=== PATIENT | male | born 1960 | race Caucasian/White ===

== ENCOUNTER → 2017-01-28 | Outpatient (CLI) | payer BC ==
[~2017-01-28] MED LIST: PRILOSEC20 MG PO; ZESTRIL40 MG PO; ZYLOPRIM300 MG PO
--- NOTE | ~2017-01-28 | ECHO ---
Transthoracic Echocardiography Report (TTE) Demographics Patient Name FRANCINE SHAFER Date of Study 01/28/2017 Patient Number [id number] Visit Number [id number] Date of 1960 Room Number Gender Male Number Age 56 year(s) Referring [facility] Core Setter Belgica Izquierdo RD, Physician RVT Physician Interpreting Asaf Joy Rail Signal Mechanic Physician MD Supervising Ordering Asaf Joy MD/MLP Physician MD Nurse Stress Major Appliance Assembly Supervisor Conclusions Contractility Score Summary Normal Left Ventricular contractility was noted. Summary Normal LV/RV systolic function. The estimated left ventricular ejection fraction is 65-70%. Diastolic assessment reveals Grade I diastolic dysfunction. Mild biatrial enlargement. Calcified AV, appears trileaflet, however it is not well visualized. There is moderate aortic regurgitation by color Doppler. Moderate , mean gradient of 29 mmHg across the AV. Procedure Type of Study TTE procedure:2D Echocardiogram. Procedure Date Date: 01/28/2017 Start: 12:36 PM Study Location: Inpatient Portable Technical Quality: Adequate visualization Indications:Heart murmur. Appropriate Use Criteria: 9 Patient Status: Routine Rhythm: Within normal limits HR: 88 bpm BP: 178/7484 mmHg M-Mode/2D Measurements LV Diastolic Dimension: 6.02 cm LV Systolic Dimension: 4.02 cm LV Septum Diastolic: 0.86 cm LV Septum Systolic: 3.99 cm LV PW Diastolic: 0.99 cm AO Root Dimension: 3.1 cm Cardiac Output: 6.45 l/min AV Cusp Separation: 0.5 cm RV Diastolic Dimension: 1.93 cm LA volume: 83 ml IVC Inspiration: 1.03 cm LVOT: 2.2 cm RV Base: 3.74 cm LVOT VTI: 19.3 cm RV Mid: 3.04 cm LV Stroke volume: 73.33 ml TAPSE: 1.97 cm TDI-S': 13.7 cm/s Doppler Measurements AV Peak Velocity: 2.79 m/s MV Peak E-Wave: 1.56 m/s AV Peak Gradient: 31.14 mmHg MV Peak A-Wave: 1.3 m/s AV Mean Gradient: 24 mmHg MV E/A Ratio: 1.2 LVOT Peak Velocity: 0.78 m/s MV P1/2t: 70 msec TR Gradient:22.09 mmHg PV Peak Velocity: 1.02 m/s Estimated RAP:3 mmHg PV Peak Gradient: 4.16 mmHg Estimated RVSP: 25 mmHg Estimated PASP: 25.09 mmHg Findings Left Ventricle The estimated left ventricular ejection fraction is 65-70%. The left ventricle is mildly dilated . Diastolic assessment reveals Grade I diastolic dysfunction. Right Ventricle Normal right ventricle structure and function. Left Atrium The left atrium is mildly dilated by LA volume index measurement. Right Atrium The right atrium is mildly dilated. Mitral Valve Trivial mitral regurgitation by color Doppler. Aortic Valve Calcified AV, appears trileaflet, it is not well visualized. Can not exclude Bicuspid AV. There is moderate aortic regurgitation by color Doppler. Moderate , mean gradient of 29 mmHg across the AV. Tricuspid Valve Mild tricuspid regurgitation by color Doppler. Pulmonic Valve No pulmonic valve regurgitation by color Doppler. Pericardial Effusion Triviall pericardial effusion. Miscellaneous Visualized portions of the aortic root and ascending aorta appear normal in size. Pleural Effusion No evidence of pleural effusion. Contractility Score LV regional wall motion:(0-Non visualized 1-Normal 2-Hypokinesis 3-Akinesis 4-Dyskinesis 5-Aneurysm) Signature dtt: KARENA MEAD dtd: 01/28/17 1236 Physician Self Edit
--- NOTE | ~2017-01-28 | ESTC ---
Cardiac Perfusion Imaging Demographics Patient Name HOLLIS Meza Gender Male Patient Number [id number] Race Visit Number [id number] Ethnicity [employer] ID Room Number Accession Number [id number] Height 73 inches Date of 1960 Weight 245 pounds Interpreting Asaf Joy Date of study 01/28/2017 Physician Supervising /RICARDOP Asaf Joy NM Technologist Denise Ramsey MD Ordering Physician Chrissy Toledo MD radioactivity technician Stress ECG Reading Asaf Joy Nurse Marquis Short Physician MD Zeferino Bar RN Medications Reviewed with Patient prior to Procedure. Procedure Admit Source:Other. Procedure Type: Nuclear Stress Test:Exercise, Cardiolite Stress Test Procedure Start time: 01/28/2017 10:25 Indications: Chest heaviness and Heart Murmur. Risk Factors The patient risk factors include:treated hypertension and diet treated diabetes mellitus. Conclusions Impression ECG portion of exercise stress test is clinically negative for ischemia by diagnostic criteria. Patient reached 95% of MPHR, and acheived 10.4 METS. Myocardial perfusion imaging is essentially normal and there is no evidence of convincing ischemia. The inferior wall matched defect is consistent with soft tissue attenuation. Overall left ventricular systolic function was normal without regional wall motion abnormalities. Calculated LVEF is 55% and TID ratio is 0.92. There are no previous studies for comparison . Stress Protocols Resting ECG Normal sinus rhythm. RBBB. Resting HR:70 bpm Resting BP:193/92 mmHg Pre-stress physical exam: Patient assessed by prior to testing. Stress Protocol:Exercise Peak HR:155 bpm HR/BP product:[id number] Peak BP:196/78 mmHg Predicted HR: 162 bpm % of predicted HR: 96 Test duration:08:30 min Reason for termination:Fatigue ECG Findings No ECG changes suggestive of ischemia. Arrhythmias No rhythm abnormality. Symptoms Fatigue. Stress Interpretation Appropriate hemodynamic response to exercise. No significant ST-T wave changes with exercise. EKG portion is negative for ischemia by diagnostic criteria. The Parsons Treadmill score was 9 .This corresponds to a low risk stress test. Imaging Results Applied corrections - Motion correction applied High risk findings Summed scores - Summed stress score: 4 - Summed rest score: 4 - Summed difference score: 0 Stress ejection Ejection fraction:55 % EDV :152 ml ESV :68 ml Stroke volume :84 ml LV mass :170 gr Imaging Protocols Rest Stress Isotope:Tc99m Sestamibi IV Isotope: Tc99m Sestamibi IV Isotope dose:14.3 mCi Isotope dose:43.5 mCi Date:01/28/2017 08:00 Date:01/28/2017 11:05 Technique: SPECT Supine Scan Time:45-60 minutes post Scan Time:45-60 minutes post injection injection Medical History Admission Data Admission date: 01/28/2017 Admission Time: 07:42 Hospital Status: Outpatient. Signatures dtt: KARENA MEAD dtd: 01/28/17 1025 Physician Self Edit
== END | disposition disaster alternative care site (69) ==
LOC: GRAD 07:42
DX: I10 Essential (primary) hypertension (principal); E11.65 Type 2 diabetes mellitus with hyperglycemia; I35.1 Nonrheumatic aortic (valve) insufficiency; I70.90 Unspecified atherosclerosis; R01.1 Cardiac murmur, unspecified; R07.89 Other chest pain; R10.13 Epigastric pain; R94.31 Abnormal electrocardiogram [ECG] [EKG]
CPT/HCPCS: A9500

== ENCOUNTER → 2017-02-10 | Day surgery (SDC) | payer BC ==
[~2017-02-10] VITALS: Ht 185.4 cm; Wt 105.9 kg
== END | disposition disaster alternative care site (69) ==
LOC: GPOC 01-27 15:00 → GEND 07:39
PROC: 0DB58ZX Excision of Esophagus, Via Natural or Artificial Opening Endoscopic, Diagnostic (ICD-10-PCS; principal; 2017-02-10)
PROC: 0DB68ZX Excision of Stomach, Via Natural or Artificial Opening Endoscopic, Diagnostic (ICD-10-PCS; 2017-02-10)
PROC: 0DBH8ZX Excision of Cecum, Via Natural or Artificial Opening Endoscopic, Diagnostic (ICD-10-PCS; 2017-02-10)
PROC: 0DBK8ZX Excision of Ascending Colon, Via Natural or Artificial Opening Endoscopic, Diagnostic (ICD-10-PCS; 2017-02-10)
PROC: 0DBL8ZX Excision of Transverse Colon, Via Natural or Artificial Opening Endoscopic, Diagnostic (ICD-10-PCS; 2017-02-10)
DX: Z12.11 Encounter for screening for malignant neoplasm of colon (principal); D12.0 Benign neoplasm of cecum; D12.2 Benign neoplasm of ascending colon; D12.3 Benign neoplasm of transverse colon; K31.7 Polyp of stomach and duodenum; K29.50 Unspecified chronic gastritis without bleeding; I10 Essential (primary) hypertension; M10.9 Gout, unspecified; Z85.71 Personal history of Hodgkin lymphoma; Z92.21 Personal history of antineoplastic chemotherapy; Z79.899 Other long term (current) drug therapy; Z98.890 Other specified postprocedural states
CPT/HCPCS: J2001; J7030